=== PATIENT | female | born 1965 | race African-American/Black ===

== ENCOUNTER 2022-04-10 14:05 | Outpatient (CLI) | payer OTHER | END 2022-04-10 14:06 | disposition home or self-care (01) | LOC: LABBT 14:05 | PROVIDERS: ATTEND Internal Medicine Hematology & Oncology | DX: C50.919 Malignant neoplasm of unspecified site of unspecified female breast (principal); R22.2 Localized swelling, mass and lump, trunk; Z20.822 Contact with and (suspected) exposure to COVID-19 | CPT/HCPCS: 87811 ==

== ENCOUNTER 2022-04-14 08:24 | Day surgery (SDC) | payer OTHER ==
[2022-04-14 08:50] LABS: INR-International Normal Ratio 1.1; PTT 36.2 sec (22.9-36.1); Prothrombin Time 13.9 sec (12.0-14.7)
[2022-04-14 11:14] VITALS: BP 137/87; TEMP 98.7
== END 2022-04-14 12:25 | disposition home or self-care (01) ==
LOC: CT 08:24
PROVIDERS: ATTEND Internal Medicine Hematology & Oncology
PROC: 0PB43ZX Excision of Thoracic Vertebra, Percutaneous Approach, Diagnostic (ICD-10-PCS; principal; 2022-04-14)
DX: C50.112 Malignant neoplasm of central portion of left female breast (principal); C79.51 Secondary malignant neoplasm of bone; I10 Essential (primary) hypertension; J45.909 Unspecified asthma, uncomplicated; Z79.811 Long term (current) use of aromatase inhibitors; Z79.899 Other long term (current) drug therapy; Z91.041 Radiographic dye allergy status
CPT/HCPCS: 20225; 36415; 77002; 85610; 85730; 88307; 88333; 88334; 88341; 88342

== ENCOUNTER 2022-04-18 08:39 | Outpatient (CLI) | payer OTHER ==
[2022-04-18] MEDS ORDERED: Iopamidol 370 76% 100 ML VIAL ONE (11:34)
== END 2022-04-18 08:40 | disposition home or self-care (01) ==
LOC: CT 08:39
PROVIDERS: ATTEND Internal Medicine Hematology & Oncology
DX: C50.112 Malignant neoplasm of central portion of left female breast (principal); R22.2 Localized swelling, mass and lump, trunk; R91.1 Solitary pulmonary nodule; M89.9 Disorder of bone, unspecified
CPT/HCPCS: 71260; 74177; 78306; 82565; A9503; Q9967

== ENCOUNTER 2023-05-18 08:34 | Outpatient (CLI) | payer OTHER ==
[2023-05-18] MEDS ORDERED: Iopamidol 370 76% 100 ML VIAL ONE (11:04)
== END 2023-05-18 08:35 | disposition home or self-care (01) ==
LOC: NM 08:34
PROVIDERS: ATTEND Internal Medicine Hematology & Oncology
DX: C50.112 Malignant neoplasm of central portion of left female breast (principal); E04.1 Nontoxic single thyroid nodule; J98.4 Other disorders of lung; K83.8 Other specified diseases of biliary tract; R92.1 Mammographic calcification found on diagnostic imaging of breast
CPT/HCPCS: 71260; 74177; 78306; 82565; A9503; Q9967

== ENCOUNTER 2024-05-26 09:08 | Outpatient (CLI) | payer OTHER | END 2024-05-26 09:09 | disposition home or self-care (01) | LOC: NM 09:08 | PROVIDERS: ATTEND Internal Medicine Hematology & Oncology | DX: C79.81 Secondary malignant neoplasm of breast (principal); C77.9 Secondary and unspecified malignant neoplasm of lymph node, unspecified; C79.51 Secondary malignant neoplasm of bone; R91.1 Solitary pulmonary nodule | CPT/HCPCS: 78306; A9503 ==

== ENCOUNTER 2024-10-17 08:49 | Outpatient (CLI) | payer OTHER | END 2024-10-17 08:50 | disposition home or self-care (01) | LOC: NM 08:49 | PROVIDERS: ATTEND Internal Medicine Hematology & Oncology | DX: C50.112 Malignant neoplasm of central portion of left female breast (principal) | CPT/HCPCS: 78306; A9503 ==

== ENCOUNTER 2025-06-04 17:52 | Inpatient (IN) | payer MEDICAID, MEDICARE, SELFPAY ==
[~2025-06-04 17:52] MED LIST: Communication Order-Pharmacy FS ONE
[2025-06-04 18:55] LABS: #Basophils 0.07 10x3/uL (0.0-0.2); #Eosinophils 0.07 10x3/uL (0.0-0.7); #Monocytes 0.24 10x3/uL (0.11-0.59); #Neutrophils 2.97 10x3/uL (1.40-6.50); %Basophils 1.7 % (0.0-1.0); %Eosinophils 1.7 % (0.0-10.0); %Lymphocytes 18.8 % (21.0-51.0); %Monocytes 5.8 % (0.0-10.0); %Neutrophils 71.5 % (42.0-75.0); Hematocrit 24.1 % (36.0-47.0); Hemoglobin 7.8 g/dL (12.0-16.0); Mean Corpuscular Hemoglobin 34.2 pg (27.0-31.0); Mean Corpuscular Volume 105.7 fL (78.0-98.0); Platelet Count 225 10x3/uL (130-400); Red Blood Cell (RBC) Count 2.28 mill/uL (4.20-5.40); White Blood Cell (WBC) Count 4.15 10x3/uL (4.8-10.8)
[2025-06-04 19:08] LABS: ALT (SGPT) 7 U/L (Less than 34); AST (SGOT) 27 U/L (11-34); Albumin 3.2 g/dL (3.1-4.5); Alkaline Phosphatase 52 U/L (40-110); Anion Gap 14 mmol/L (10-20); BUN (Urea Nitrogen) 38 mg/dL (9.8-20.1); Bilirubin, Total 0.4 mg/dL (0.3-1.2); CK (CPK) 146 U/L (29-168); Calc. Creatinine Clearance 0 mL/min (70-130); Calcium 9.8 mg/dL (7.8-10.44); Carbon Dioxide 20 mmol/L (23-31); Chloride 108 mmol/L (98-107); Globulin 4.4 g/dL (2.4-3.5); Glucose 131 mg/dL (80-115); Magnesium 1.6 mg/dL (1.6-2.6); Potassium 3.3 mmol/L (3.5-5.1); Sodium 139 mmol/L (136-145)
[2025-06-04] MEDS ORDERED: Potassium Bicarbonate/Cit Ac 20 MEQ TAB ONE (21:40)
[2025-06-04] MEDS ORDERED: Electrolyte Replacement Protocol 1 EACH FS SCH (23:45)
[2025-06-04] MEDS ORDERED: Calcium Carbonate 500 MG ChewTAB PO PRN (23:51)
[2025-06-04] MEDS ORDERED: Acetaminophen 325 MG TAB PO PRN (23:51)
[2025-06-05 02:32] VITALS: BMI 35.4
[2025-06-05 04:11] LABS: #Basophils 0.07 10x3/uL (0.0-0.2); #Eosinophils 0.11 10x3/uL (0.0-0.7); #Monocytes 0.23 10x3/uL (0.11-0.59); #Neutrophils 2.22 10x3/uL (1.40-6.50); %Basophils 1.8 % (0.0-1.0); %Eosinophils 2.8 % (0.0-10.0); %Lymphocytes 33.1 % (21.0-51.0); %Monocytes 5.8 % (0.0-10.0); %Neutrophils 56.0 % (42.0-75.0); Hematocrit 22.4 % (36.0-47.0); Hemoglobin 7.1 g/dL (12.0-16.0); Mean Corpuscular Hemoglobin 34.3 pg (27.0-31.0); Mean Corpuscular Volume 108.2 fL (78.0-98.0); Platelet Count 190 10x3/uL (130-400); Red Blood Cell (RBC) Count 2.07 mill/uL (4.20-5.40); White Blood Cell (WBC) Count 3.96 10x3/uL (4.8-10.8)
[2025-06-05 04:27] LABS: Anion Gap 13 mmol/L (10-20); BUN (Urea Nitrogen) 42 mg/dL (9.8-20.1); Calc. Creatinine Clearance 17 mL/min (70-130); Calcium 9.3 mg/dL (7.8-10.44); Carbon Dioxide 23 mmol/L (23-31); Chloride 110 mmol/L (98-107); Glucose 81 mg/dL (80-115); Potassium 3.5 mmol/L (3.5-5.1); Sodium 142 mmol/L (136-145)
[2025-06-05 05:20] LABS: Glucose, Urine (Dipstick) Normal (Negative); Leukocyte 25 Leu/uL (Negative); Protein, Urine (Dipstick) 10 mg/dL (Neg-Trace); RBC/HPF 0-3 HPF (0-3); Specific Gravity, Urine 1.014 (1.002-1.036); WBC/HPF 0-3 HPF (0-3)
[2025-06-05 05:30] LABS: Bacteria/HPF 1+ HPF (None Seen)
[2025-06-05] MEDS ORDERED: Enoxaparin 100 MG (1 mL) SYRINGE SC SCH (09:00)
[2025-06-05] MEDS: Multivit, Therapeutic 1 TAB PO SCH (09:59)
[2025-06-05] MEDS: Famotidine 20 MG TAB PO SCH (10:00)
[2025-06-05] MEDS: Folic Acid 1 MG TAB PO SCH (10:00)
[2025-06-05 12:14] VITALS: BMI 35.4
[2025-06-05] MEDS: EPOETIN ALFA-EPBX (ESRD) 10,000 UNITS/ML VIAL SC SCH (17:11)
[2025-06-05 18:07] LABS: Hematocrit 24.4 % (36.0-47.0); Hemoglobin 7.8 g/dL (12.0-16.0); Platelet Count 182 10x3/uL (130-400)
[2025-06-06 04:39] LABS: #Basophils 0.04 10x3/uL (0.0-0.2); #Eosinophils 0.09 10x3/uL (0.0-0.7); #Monocytes 0.20 10x3/uL (0.11-0.59); #Neutrophils 2.14 10x3/uL (1.40-6.50); %Basophils 1.2 % (0.0-1.0); %Eosinophils 2.6 % (0.0-10.0); %Lymphocytes 28.0 % (21.0-51.0); %Monocytes 5.8 % (0.0-10.0); %Neutrophils 61.8 % (42.0-75.0); Hematocrit 24.0 % (36.0-47.0); Hemoglobin 7.6 g/dL (12.0-16.0); Mean Corpuscular Hemoglobin 33.5 pg (27.0-31.0); Mean Corpuscular Volume 105.7 fL (78.0-98.0); Platelet Count 183 10x3/uL (130-400); Red Blood Cell (RBC) Count 2.27 mill/uL (4.20-5.40); White Blood Cell (WBC) Count 3.46 10x3/uL (4.8-10.8)
[2025-06-06 04:55] LABS: Anion Gap 12 mmol/L (10-20); BUN (Urea Nitrogen) 31 mg/dL (9.8-20.1); Calc. Creatinine Clearance 28 mL/min (70-130); Calcium 8.7 mg/dL (7.8-10.44); Carbon Dioxide 20 mmol/L (23-31); Chloride 114 mmol/L (98-107); Glucose 86 mg/dL (80-115); Magnesium 1.4 mg/dL (1.6-2.6); Potassium 3.3 mmol/L (3.5-5.1); Sodium 143 mmol/L (136-145)
[2025-06-06] MEDS: Magnesium 2 GM/50 ML(in water) 2 GM in Premix 1 BAG IVPB SCH (08:52)
[2025-06-06 14:18] LABS: Hematocrit 25.5 % (36.0-47.0); Hemoglobin 8.1 g/dL (12.0-16.0)
[2025-06-06 14:35] LABS: Anion Gap 15 mmol/L (10-20); BUN (Urea Nitrogen) 25 mg/dL (9.8-20.1); Calc. Creatinine Clearance 35 mL/min (70-130); Calcium 8.8 mg/dL (7.8-10.44); Carbon Dioxide 18 mmol/L (23-31); Chloride 114 mmol/L (98-107); Glucose 166 mg/dL (80-115); Magnesium 2.0 mg/dL (1.6-2.6); Potassium 3.7 mmol/L (3.5-5.1); Sodium 143 mmol/L (136-145)
[2025-06-07 04:56] LABS: Hematocrit 22.3 % (36.0-47.0); Hemoglobin 7.3 g/dL (12.0-16.0); Mean Corpuscular Hemoglobin 33.8 pg (27.0-31.0); Mean Corpuscular Volume 103.2 fL (78.0-98.0); Platelet Count 174 10x3/uL (130-400); Red Blood Cell (RBC) Count 2.16 mill/uL (4.20-5.40); White Blood Cell (WBC) Count 3.66 10x3/uL (4.8-10.8)
[2025-06-07 05:03] LABS: Anion Gap 12 mmol/L (10-20); BUN (Urea Nitrogen) 17 mg/dL (9.8-20.1); Calc. Creatinine Clearance 45 mL/min (70-130); Calcium 8.2 mg/dL (7.8-10.44); Carbon Dioxide 20 mmol/L (23-31); Chloride 115 mmol/L (98-107); Glucose 85 mg/dL (80-115); Potassium 3.7 mmol/L (3.5-5.1); Sodium 143 mmol/L (136-145)
[2025-06-07] MEDS: Thiamine 100 MG TAB PO SCH (09:39)
[2025-06-07] MEDS: PNEUMOC 20-VAL CONJ-DIP CRM/PF 0.5 ML SYRINGE IM ONE (21:49)
[2025-06-07] MEDS ORDERED: Thiamine 100 MG TAB PO SCH (23:45)
[2025-06-08 03:54] LABS: Hematocrit 23.4 % (36.0-47.0); Hemoglobin 7.4 g/dL (12.0-16.0); Mean Corpuscular Hemoglobin 33.6 pg (27.0-31.0); Mean Corpuscular Volume 106.4 fL (78.0-98.0); Platelet Count 166 10x3/uL (130-400); Red Blood Cell (RBC) Count 2.20 mill/uL (4.20-5.40); White Blood Cell (WBC) Count 3.59 10x3/uL (4.8-10.8)
[2025-06-08 04:07] LABS: Anion Gap 9 mmol/L (10-20); BUN (Urea Nitrogen) 10 mg/dL (9.8-20.1); Calc. Creatinine Clearance 63 mL/min (70-130); Calcium 8.3 mg/dL (7.8-10.44); Carbon Dioxide 21 mmol/L (23-31); Chloride 115 mmol/L (98-107); Glucose 94 mg/dL (80-115); Potassium 3.4 mmol/L (3.5-5.1); Sodium 142 mmol/L (136-145)
[2025-06-08] MEDS: Apixaban 5 MG TAB PO SCH (10:23)
[2025-06-08 12:26] VITALS: BP 132/85
[2025-06-08 15:54] VITALS: TEMP 98.2
== END 2025-06-08 15:30 | disposition home or self-care (01) | DRG 945 ==
LOC: ERS 17:52 → 2SE 22:44
PROVIDERS: ADMIT Internal Medicine; ATTEND Internal Medicine
PROC: F07Z5ZZ Bed Mobility Treatment (ICD-10-PCS; principal; 2025-06-05)
PROC: 30233N1 Transfusion of Nonautologous Red Blood Cells into Peripheral Vein, Percutaneous Approach (ICD-10-PCS; 2025-06-05)
PROC: 3E0234Z Introduction of Serum, Toxoid and Vaccine into Muscle, Percutaneous Approach (ICD-10-PCS; 2025-06-06)
DX: R53.81 Other malaise (principal); I21.A1 Myocardial infarction type 2; N17.9 Acute kidney failure, unspecified; E87.20 Acidosis, unspecified; E86.0 Dehydration; Z98.890 Other specified postprocedural states; N18.30 Chronic kidney disease, stage 3 unspecified; Z91.048 Other nonmedicinal substance allergy status; Z88.8 Allergy status to other drugs, medicaments and biological substances; Z86.718 Personal history of other venous thrombosis and embolism; I12.9 Hypertensive chronic kidney disease with stage 1 through stage 4 chronic kidney disease, or unspecified chronic kidney disease; Z85.3 Personal history of malignant neoplasm of breast; D64.9 Anemia, unspecified; R19.7 Diarrhea, unspecified; E87.6 Hypokalemia; F10.20 Alcohol dependence, uncomplicated; E83.42 Hypomagnesemia; Z79.899 Other long term (current) drug therapy
CPT/HCPCS: 36415; 36430; 71045; 74176; 80048; 80053; 81001; 82550; 83605; 83735; 83880; 84484; 85025; 85027; 85379; 86850; 86900; 86901; 93005; 93970; 96360; 97139; J3411; J3475; J7030; P9016; Q0162; Q5105